=== PATIENT | female | born 1950 | race American Indian/Alaskan Native ===

== ENCOUNTER 2017-08-05 11:26 | Outpatient (CLI) | payer MEDICARE ==
[2017-08-05 12:50] LABS: Blood Urea Nitrogen 9 mg/dL (7-17)
--- NOTE | 2017-08-05 14:58 | Cat Scan Report ---
CT CHEST WITH AND WITHOUT CONTRAST: HISTORY: Calcified granuloma of lung. COMPARISON: none. TECHNIQUE: Helical CT in 1.25mm intervals before and after IV contrast. Sagittal and coronal reformatted images. FINDINGS: Thyroid gland: Normal. Tracheobronchial tree: Normal. Esophagus: Normal. Heart: Normal. Pericardium: Normal. Mediastinum: Calcified lymph nodes are noted in the subcarinal chain and bilateral hilar chains. No adenopathy is appreciated. The vascular structures are patent and unremarkable. Lung Kim: The lungs are clear. No underlying parenchymal lung disease is appreciated. A 5 mm calcified granuloma is identified in the right lower lobe. A 7 mm calcified granuloma is noted in the left lower lobe. No soft tissue density nodule or mass. No infiltrate. Pleural Spaces: Normal. Musculoskeletal: Mild thoracic spondylosis. No evidence for fracture or suspicious bony lesion. IMPRESSION: Calcified mediastinal lymph nodes and calcified granulomas in both lower lobes consistent with chronic granulomatous disease.
== END 2017-08-05 11:27 | disposition home or self-care (01) ==
LOC: CT 11:26
PROVIDERS: ATTEND Internal Medicine
DX: J84.10 Pulmonary fibrosis, unspecified (principal); M47.894 Other spondylosis, thoracic region
CPT/HCPCS: 36415; 71270; 82565; 84520; Q9967

== ENCOUNTER 2018-09-05 10:50 | Emergency (ER) | payer MEDICARE ==
--- NOTE | 2018-09-05 11:29 | Event Note ---
ED Screening Note Date of service: 09/05/18 ED Screening Note: AMS 68 YO HX BREAST CA BIPOLAR/ SCHIZO- WONT TAKE MEDS "BECAUSE THEY GONNA KILL M" NO DM NO DEMENTIA HERE W CAREGIVER WELL DRESSED AND GROOMED This initial assessment/diagnostic orders/clinical plan/treatment(s) is/are subject to change based on patients health status, clinical progression and re- assessment by fellow clinical providers in the ED. Further treatment and workup at subsequent clinical providers discretion. Patient/guardian urged not to elope from the ED as their condition may be serious if not clinically assessed and managed. Initial orders include: CT HEAD LABS INCLUDING TSH UA RO MED CAUSE- RESUME MEDS NO HARM TO SELF OR OTHERS [facility] DEPARTMENT CHAIR
[2018-09-05 11:39] LABS: Bilirubin,Urine NEG (Negative); Blood,Urine MOD (Negative); Color,Urine Yellow (Yellow); Mucus,Urine 2+ /HPF; Protein,Urine <15 mg/dL mg/dL (Negative)
[2018-09-05 11:50] LABS: Amphetamine Screen,Urine PRESUMPTIVE NEGATIVE; Benzodiazepines Screen,Urine PRESUMPTIVE NEGATIVE; Cannabinoid Screen,Urine PRESUMPTIVE NEGATIVE; Cocaine Screen,Urine PRESUMPTIVE NEGATIVE; Methadone Screen,Urine PRESUMPTIVE NEGATIVE; Opiate Screen,Urine PRESUMPTIVE NEGATIVE
[2018-09-05 11:53] LABS: Basophils # (Auto) 0.1 K/mm3 (0.0-0.1); Basophils % (Auto) 1.2 % (0.0-1.8); Eosinophils # (Auto) 0.1 K/mm3 (0.0-0.4); Eosinophils % (Auto) 1.6 % (0.0-4.3); Hematocrit 38.6 % (30.3-42.9); Hemoglobin 12.6 gm/dl (10.1-14.3); Lymphocytes # (Auto) 2.1 K/mm3 (1.2-5.4); Lymphocytes % (Auto) 45.3 % (13.4-35.0); Mean Corpuscular HGB Conc 33 % (30-34); Mean Corpuscular Volume 85 fl (79-97); Monocytes # (Auto) 0.3 K/mm3 (0.0-0.8); Monocytes % (Auto) 6.1 % (0.0-7.3); Platelet Count 230 K/mm3 (140-440); Red Blood Count 4.54 M/mm3 (3.65-5.03); Red Cell Distribution Width 17.2 % (13.2-15.2)
--- NOTE | 2018-09-05 12:02 | Emergency Department Report ---
HPI - General Chief Complaint: Psych Time Seen by Provider: 09/05/18 11:24 - HPI HPI: 68-year-old -Tongan female presents to the emergency department with her sole polisher with complaint of worsening of her paranoid schizophrenia secondary to medication noncompliance. The patient is one of 3 individuals at this personal halfway. The sole polisher says that she has been spitting out her meds on the floor or hiding them and these medications include Seroquel, trazodone, valproic acid, Haldol. The patient says "These are doo doo meds and she is trying to kill me." She was heard walking down the ER hallways yelling "don't kill me, don't kill me." She is AAO x [address] but not time. Denies any suicidal or homicidal ideations. ED Past Medical Hx - Past Medical History Previous Medical History?: Yes Hx GERD: Yes Hx of Cancer: Yes (breast cancer) Hx Psychiatric Treatment: Yes (paranoid schziophernia) - Surgical History Past Surgical History?: Yes Hx Breast Surgery: Yes (left breast mastectomy >10years ago) Additional Surgical History: hernia repair - Social History Smoking Status: Never Smoker Substance Use Type: None - Medications Home Medications: Home Medications Medication Instructions Recorded Confirmed Last Taken Type Cetirizine HCl [ZyrTEC 10mg cap] 10 mg PO DAILY 09/05/18 09/05/18 Unknown History Haloperidol Lactate 2 mg PO BID 09/05/18 09/05/18 Unknown History Pantoprazole [Protonix] 40 mg PO QDAY 09/05/18 09/05/18 Unknown History Quetiapine Fumarate [SEROquel] 50 mg PO QHS 09/05/18 09/05/18 Unknown History Trazodone HCl 150 mg PO QHS 09/05/18 09/05/18 Unknown History Valproic Acid [DepaKENE] 250 mg PO BID 09/05/18 09/05/18 Unknown History ED Review of Systems ROS: Stated complaint: MH EVALUATION Other details as noted in HPI Comment: Unobtainable due to pts medical conditions Psychiatric: other (paranoia). denies: homicidal thoughts, suicidal thoughts Physical Exam - Physical Exam Vital Signs: Vital Signs 09/05/18 11:24 Temperature 98.3 F Pulse Rate 78 Respiratory 16 Rate Blood Pressure 158/91 [Right] O2 Sat by Pulse 99 Oximetry Physical Exam: GENERAL: The patient is well-developed well-nourished. HENT: Normocephalic. Atraumatic. Patient has moist mucous membranes. EYES: Extraocular motions are intact. NECK: Supple. Trachea is midline. CHEST/LUNGS: Clear to auscultation. There is no respiratory distress noted. HEART/CARDIOVASCULAR: Regular. There is no tachycardia. There is no murmur. ABDOMEN: Abdomen is soft, nontender. Patient has normal bowel sounds. There is no abdominal distention. SKIN: Skin is warm and dry. NEURO: The patient is awake but confused. The patient has normal speech. Follows some commands. MUSCULOSKELETAL: There is no tenderness or deformity. There is no limitation range of motion. There is no evidence of acute injury. PSYCH: The patient exhibits paranoia and delusions. She is sometimes redirectable. ED Course Vital Signs 09/05/18 11:24 Temperature 98.3 F Pulse Rate 78 Respiratory 16 Rate Blood Pressure 158/91 [Right] O2 Sat by Pulse 99 Oximetry ED Medical Decision Making - Lab Data Result diagrams: 09/05/18 11:36 09/05/18 11:36 - Medical Decision Making The patient presented from her personal halfway with some worsening of her schizophrenia. I do not know if this is because the patient has not taken her medications or her psychosis has caused her to stop taking her medications but they were found on her floor. She exhibits paranoia and delusions. She is disorganized and keeps repeating that people are trying to kill her. For these reasons the patient does appear to require involuntary inpatient psychiatric admission. Her labs have been unremarkable. Vital signs are stable. She is medically cleared for psychiatric placement and the plan is to get her to the [facility] psych floor. - Differential Diagnosis schizophrenia, schizoaffective, bipolar disorder, substance abuse Critical Care Time: No Critical care attestation.: If time is entered above; I have spent that time in minutes in the direct care of this critically ill patient, excluding procedure time. ED Disposition Clinical Impression: Acute psychosis Disposition: DC/TX-65 PSY HOSP/PSY UNIT Is pt being admited?: No Condition: Stable Time of Disposition: 18:34
[2018-09-05 12:18] LABS: Alanine Aminotransferase 15 units/L (7-56); Albumin 4.2 g/dL (3.9-5); BUN/Creatinine Ratio 16; Blood Urea Nitrogen 13 mg/dL (7-17); Calcium 9.3 mg/dL (8.4-10.2); Hemolysis Index 6
--- NOTE | 2018-09-05 13:45 | Cat Scan Report ---
CT HEAD WITHOUT CONTRAST: HISTORY: Altered mental status. TECHNIQUE: Sequential CT images without contrast. FINDINGS: Images obtained show bilateral prominence of the sulci and ventricles. There are no abnormal intra- or extra-axial blood or fluid collections. There are no focal masses or evidence of mass effect. The tellez white matter differentiation appears within normal limits. Regions of periventricular decreased attenuation are consistent with microangiopathic ischemic disease. The posterior fossa structures including the fourth ventricle, cerebellum, and brainstem appear normal. IMPRESSION: Evidence of atrophy and microangiopathic ischemic disease. No acute intracranial process noted.
[2018-09-05 19:51] VITALS: BP 130/80
[2018-09-05] MEDS ORDERED: NON-FORMULARY (Trazodone Hcl [Trazodone Hcl] 150 MG) PO SCH (22:00)
[2018-09-05] MEDS ORDERED: DESYREL PO SCH (22:00)
[2018-09-05] MEDS ORDERED: HALOPERIDOL LACTATE PO SCH (22:00)
[2018-09-05] MEDS ORDERED: HALDOL PO SCH (22:00)
[2018-09-05] MEDS ORDERED: NON-FORMULARY (Quetiapine Fumarate [Seroquel] 50 MG) PO SCH (22:00)
[2018-09-06] MEDS ORDERED: PROTONIX PO SCH (10:00)
== END 2018-09-05 20:05 ==
LOC: ED 10:50
DX: F23 Brief psychotic disorder (principal); F20.0 Paranoid schizophrenia; K21.9 Gastro-esophageal reflux disease without esophagitis; Z85.3 Personal history of malignant neoplasm of breast
CPT/HCPCS: 36415; 70450; 80053; 80164; 80307; 81001; 84443; 85025

== ENCOUNTER 2018-09-05 18:58 | Inpatient (IN) | payer MEDICARE ==
[~2018-09-05 18:58] MED LIST: ATIVAN IM ONE
[2018-09-05] MEDS ORDERED: HALDOL IM PRN (19:50)
[2018-09-05] MEDS ORDERED: HALDOL PO PRN (19:52)
[2018-09-05] MEDS ORDERED: ATIVAN IM PRN (19:53)
[2018-09-05] MEDS: DESYREL PO SCH (22:07)
[2018-09-05] MEDS: HALDOL PO SCH (22:08)
[2018-09-06 07:52] LABS: Hematocrit TNR % (30.3-42.9); Hemoglobin TNR gm/dl (10.1-14.3); Mean Corpuscular HGB Conc TNR % (30-34); Mean Corpuscular Volume TNR fl (79-97); Red Blood Count TNR M/mm3 (3.65-5.03)
[2018-09-06 07:53] LABS: Mean Platelet Volume TNR fl (6-12); Platelet Count TNR K/mm3 (140-440); Red Cell Distribution Width TNR % (13.2-15.2)
[2018-09-06 07:54] LABS: Lymphocytes % (Auto) TNR % (13.4-35.0); Monocytes % (Auto) TNR % (0.0-7.3)
[2018-09-06 07:55] LABS: Basophils % (Auto) TNR % (0.0-1.8); Eosinophils % (Auto) TNR % (0.0-4.3); Lymphocytes # (Auto) TNR K/mm3 (1.2-5.4)
[2018-09-06 07:56] LABS: Basophils # (Auto) TNR K/mm3 (0.0-0.1); Eosinophils # (Auto) TNR K/mm3 (0.0-0.4); Monocytes # (Auto) TNR K/mm3 (0.0-0.8)
[2018-09-06 08:01] LABS: Alanine Aminotransferase 13 units/L (7-56); Albumin 3.5 g/dL (3.9-5); BUN/Creatinine Ratio 21; Blood Urea Nitrogen 15 mg/dL (7-17); Calcium 8.9 mg/dL (8.4-10.2); Hemolysis Index 21; LDL Cholesterol,Direct 63 mg/dL (50-130)
[2018-09-06 09:17] LABS: Chol/HDL Ratio 2.27 %; HDL Cholesterol 55 mg/dL (40-59)
[2018-09-06] MEDS: PROTONIX PO SCH (09:53)
[2018-09-06] MEDS: CLARITIN PO SCH (09:53)
[2018-09-06] MEDS: HALDOL PO SCH ×2 (09:54→21:30)
--- NOTE | 2018-09-06 19:39 | History and Physical Report ---
GP History & Physical - History of Present Illness Date of admission: 09/05/18 Date of Examination: 09/06/18 Reason for Admission: Danger to self, Impaired reality testing, Psychopathology interference, Unable to care for self Chief Complaint: I am the Holy Ghost lady History of Present Illness: The patient is a 68-year-old disabled -[place] female with history of Paranoid Schizophrenia brought to the emergency department by her senior patient account representative with complaint of worsening of her paranoid schizophrenia secondary to medication noncompliance. Per medical records, the patient is one of 3 individuals at this personal alf. The senior patient account representative says that she has been spitting out her meds on the floor or hiding them and these medications include Seroquel, trazodone, valproic acid, Haldol. In my interview with the patient, she states that she is the Holy Ghost lady, claims to be to God and God talks to tell her - tells her she is going to be alright. Nursing staff reports that she is delusional and hyper-bahai. Patient denies paranoia, suicidal or homicidal thoughts. She claims to be taking her medications as prescribed and denies side effects. She describes healthy appetite and normal sleep pattern. No history of substance abuse. Legal Status: Voluntary Patient Problems: Current Active Problems Paranoid schizophrenia (Acute) Reaction to Hospitalization: Accepting Substance History - Substance History Drug Use: none Hx Tobacco Use: No Alcohol Use: No Past psychiatric history - Past Medical History Past Medical History: cancer, GERD Past Surgical History: mastectomy - past Psychiatric treatment and history Psych: Schizophrenia - Social History Social history: single (She lives in a [facility], completed high school, disabled, no legal problems and no access to gun) Review of Systems All systems: negative Psychiatric: hallucinations Results - Results Labs/Vitals: Laboratory Last Values Sodium 145 mmol/L (137-145) 09/06/18 07:15 Potassium 3.6 mmol/L (3.6-5.0) 09/06/18 07:15 Chloride 106.5 mmol/L (98-107) 09/06/18 07:15 Carbon Dioxide 28 mmol/L (22-30) 09/06/18 07:15 14 mmol/L 09/06/18 07:15 BUN 15 mg/dL (7-17) 09/06/18 07:15 0.7 mg/dL (0.7-1.2) 09/06/18 07:15 Estimated GFR > 60 ml/min 09/06/18 07:15 21 % 09/06/18 07:15 Glucose 97 mg/dL (65-100) 09/06/18 07:15 POC Glucose 75 (70-105) 09/06/18 18:25 5.0 % (4-6) 09/06/18 08:10 Calcium 8.9 mg/dL (8.4-10.2) 09/06/18 07:15 0.20 mg/dL (0.1-1.2) 09/06/18 07:15 AST 19 units/L (5-40) 09/06/18 07:15 ALT 13 units/L (7-56) 09/06/18 07:15 49 units/L (35-129) 09/06/18 07:15 7.1 g/dL (6.3-8.2) 09/06/18 07:15 3.5 g/dL (3.9-5) L 09/06/18 07:15 1.0 % 09/06/18 07:15 Triglycerides 39 mg/dL (2-149) 09/06/18 07:15 Cholesterol 125 mg/dL (50-199) 09/06/18 07:15 63 mg/dL (50-130) 09/06/18 07:15 55 mg/dL (40-59) 09/06/18 07:15 2.27 % 09/06/18 07:15 Last Vital Signs Temp 97.6 F 09/06/18 10:00 Pulse 78 09/06/18 10:00 Resp 18 09/06/18 10:00 BP 123/71 09/06/18 10:00 Pulse Ox 99 09/06/18 10:00 Physical Examination - Constitutional Vitals: Vital Signs Temp Pulse Resp BP Pulse Ox 97.6 F 78 18 123/71 99 09/06/18 10:00 09/06/18 10:00 09/06/18 10:00 09/06/18 10:00 09/06/18 10:00 Temperature -Last 24 Hours Temperature 97.6 F Temperature 97.6 F Temperature 97.2 F Temperature 98.7 F Temperature 98.7 F General appearance: Present: no acute distress, well-nourished, disheveled - EENT Eyes: Present: PERRL, EOM intact ENT: hearing intact, clear oral mucosa - Neck Neck: Present: supple, normal ROM - Respiratory Respiratory effort: normal Mental Status Exam - Vital signs Last Vital Signs Temp 97.6 F 09/06/18 10:00 Pulse 78 09/06/18 10:00 Resp 18 09/06/18 10:00 BP 123/71 09/06/18 10:00 Pulse Ox 99 09/06/18 10:00 - Exam Orientation: time, place, person Affect: normal Mood: calm Thought content: delusions, anabaptist Thought Process: Goal Oriented Perceptions: hallucinations Speech: normal rate and pattern Concentration: focused Motor activity: normal Level of consciousness: alert Memory: Intact Sleep Symptoms: None Interaction: cooperative Assessment and Plan - Psychiatric problem (1) Paranoid schizophrenia Current Visit: Yes Status: Acute plan to address problem: Patient will be admitted for inpatient psychiatric evaluation, medication adjustment and close monitoring The patient's behavior, mood, sleep and appetite will be closely monitored. Patient will be enrolled in individual and group therapeutic sessions and encouraged to attend. Patient will be provided with a safe and structured environment. Patient's physical health needs will be addressed by the Hospitalist. Social Assessment will be completed and the Molasses Preparer will work with patient and family to ensure a suitable and safe disposition Medication adjustment will be made as clinically indicated The patient agreed on the treatment plan, understood the risk, benefit, alternative treatment, potential consequence of no treatment, and gave informed consent. Physician Certification - Certification Statement Physician Certification Statement: This is an acknowledgement statement that MARLENA WADSWORTH is a 68 year old F who requires inpatient psychiatric admission for treatment which could reasonably be expected to improve the patient's condition for Paranoid Schizophrenia Estimated period of time patient will need to remain in the hospital: 7 days Plan for post-hospital care: Out-patient care
[2018-09-06] MEDS: DESYREL PO SCH (21:23)
[2018-09-07] MEDS: CLARITIN PO SCH (09:37)
[2018-09-07] MEDS: PROTONIX PO SCH (09:37)
[2018-09-07 10:57] LABS: Bilirubin,Urine NEG (Negative); Blood,Urine MOD (Negative); Color,Urine Yellow (Yellow); Mucus,Urine FEW /HPF; Protein,Urine <15 mg/dL mg/dL (Negative); Urobilinogen,Urine < 2.0 mg/dL (<2.0)
[2018-09-07] MEDS: RisperDAL PO SCH ×2 (11:26→22:29)
[2018-09-07] MEDS: HALDOL PO SCH (13:29)
[2018-09-07] MEDS: DESYREL PO SCH (22:30)
[2018-09-07] MEDS: DepaKENE Liq PO SCH (22:50)
--- NOTE | 2018-09-08 08:59 | Progress Note ---
Subjective Date of service: 09/07/18 Principal diagnosis: Paranoid Schizophrenia Subjective Comment: Patient is floridly psychotic, delusional, paranoid, hallucinating and disorganized. She calls herself the Holy Ghost lady, calls a female staff the Cocaine lady and accuses me of plotting to kill her. She denies SI/HI. Objective - Criteria for Continued Treatment Criteria for Continued Treatment: Improving Level of Functioning, Reducing Isolative Behaviors, Understanding Diagnosis and need for Medication, Improving Treatment / Medication Compliance, Confronting Denial of Illness, Stablizing Level of Functioning, Improving Emotional/Socia - Mental Status Mental Status: Alert - Objective Observation Participation Level: Minimal Assessment and Plan - Patient Problems (1) Paranoid schizophrenia Current Visit: Yes Status: Acute Plan to address problem: Patient will be admitted for inpatient psychiatric evaluation, medication adjustment and close monitoring The patient's behavior, mood, sleep and appetite will be closely monitored. Patient will be enrolled in individual and group therapeutic sessions and encouraged to attend. Patient will be provided with a safe and structured environment. Patient's physical health needs will be addressed by the Hospitalist. Social Assessment will be completed and the Medical Payment Poster will work with patient and family to ensure a suitable and safe disposition Haldol was discontinued as it is unavailable nationwide. Risperidone 1mg bid commenced. The patient agreed on the treatment plan, understood the risk, benefit, alternative treatment, potential consequence of no treatment, and gave informed consent.
--- NOTE | 2018-09-08 09:03 | Progress Note ---
Subjective Date of service: 09/08/18 Principal diagnosis: Paranoid Schizophrenia Subjective Comment: Patient continues to be psychotic - delusional, paranoid, hallucinating and disorganized. She believes that others are plotting to kill her. She is compliant with meds and denies side effects. She denies SI/HI. Objective - Criteria for Continued Treatment Criteria for Continued Treatment: Improving Level of Functioning, Reducing Isolative Behaviors, Understanding Diagnosis and need for Medication, Improving Treatment / Medication Compliance, Confronting Denial of Illness, Stablizing Level of Functioning, Improving Emotional/Socia - Mental Status Mental Status: Alert - Objective Observation Participation Level: Minimal Assessment and Plan - Patient Problems (1) Paranoid schizophrenia Current Visit: Yes Status: Acute Plan to address problem: Patient will be admitted for inpatient psychiatric evaluation, medication adjustment and close monitoring The patient's behavior, mood, sleep and appetite will be closely monitored. Patient will be enrolled in individual and group therapeutic sessions and encouraged to attend. Patient will be provided with a safe and structured environment. Patient's physical health needs will be addressed by the Hospitalist. Social Assessment will be completed and the Shingle Packer will work with patient and family to ensure a suitable and safe disposition Haldol was discontinued as it is unavailable nationwide. Risperidone 1mg bid commenced yesterday The patient agreed on the treatment plan, understood the risk, benefit, alternative treatment, potential consequence of no treatment, and gave informed consent.
[2018-09-08] MEDS: PROTONIX PO SCH (09:58)
[2018-09-08] MEDS: RisperDAL PO SCH ×2 (09:58→21:21)
[2018-09-08] MEDS: DepaKENE Liq PO SCH ×2 (09:59→21:21)
[2018-09-08] MEDS: CLARITIN PO SCH (10:01)
[2018-09-08] MEDS: DESYREL PO SCH (21:21)
[2018-09-09] MEDS: DepaKENE Liq PO SCH ×2 (10:47→21:01)
[2018-09-09] MEDS: RisperDAL PO SCH ×2 (10:48→21:02)
[2018-09-09] MEDS: PROTONIX PO SCH (10:48)
[2018-09-09] MEDS: CLARITIN PO SCH (10:51)
--- NOTE | 2018-09-09 11:10 | Progress Note ---
Subjective Date of service: 09/09/18 Principal diagnosis: Paranoid Schizophrenia Subjective Comment: Patient continues to be psychotic - delusional, paranoid, hallucinating and disorganized. She believes that others are plotting to kill her. She is compliant with meds and denies side effects. She denies SI/HI. Objective - Criteria for Continued Treatment Criteria for Continued Treatment: Improving Level of Functioning, Reducing Isolative Behaviors, Understanding Diagnosis and need for Medication, Improving Treatment / Medication Compliance, Confronting Denial of Illness, Stablizing Level of Functioning, Improving Emotional/Socia - Mental Status Mental Status: Alert - Objective Observation Participation Level: Minimal Reason(s) For Not Participating: Behaviors Assessment and Plan - Patient Problems (1) Paranoid schizophrenia Current Visit: Yes Status: Acute Plan to address problem: Patient will be admitted for inpatient psychiatric evaluation, medication adjustment and close monitoring The patient's behavior, mood, sleep and appetite will be closely monitored. Patient will be enrolled in individual and group therapeutic sessions and encouraged to attend. Patient will be provided with a safe and structured environment. Patient's physical health needs will be addressed by the Hospitalist. Social Assessment will be completed and the Retail Bakery Manager will work with patie nt and family to ensure a suitable and safe disposition Haldol was discontinued as it is unavailable nationwide. Continue Risperidone 1mg bid The patient agreed on the treatment plan, understood the risk, benefit, alternative treatment, potential consequence of no treatment, and gave informed consent.
[2018-09-09] MEDS ORDERED: VISTARIL ONE (15:28)
[2018-09-09] MEDS ORDERED: VISTARIL PO PRN (17:14)
[2018-09-09] MEDS: DESYREL PO SCH (21:02)
--- NOTE | 2018-09-10 07:56 | Progress Note ---
Subjective Date of service: 09/10/18 Principal diagnosis: Paranoid Schizophrenia Subjective Comment: Patient continues to be psychotic. She is hyper-muslim, delusional, paranoid, hallucinating and disorganized. She is compliant with meds and denies side effects. No SI/HI gestures. Objective - Criteria for Continued Treatment Criteria for Continued Treatment: Improving Level of Functioning, Reducing Isolative Behaviors, Understanding Diagnosis and need for Medication, Improving Treatment / Medication Compliance, Stablizing Level of Functioning, Improving Emotional/Socia - Mental Status Mental Status: Alert - Objective Observation Participation Level: Minimal Reason(s) For Not Participating: Behaviors Assessment and Plan - Patient Problems (1) Paranoid schizophrenia Current Visit: Yes Status: Acute Plan to address problem: Patient will be admitted for inpatient psychiatric evaluation, medication adjustment and close monitoring The patient's behavior, mood, sleep and appetite will be closely monitored. Patient will be enrolled in individual and group therapeutic sessions and encouraged to attend. Patient will be provided with a safe and structured environment. Patient's physical health needs will be addressed by the Hospitalist. Social Assessment will be completed and the Library Clerk Talking Books will work with patient and family to ensure a suitable and safe disposition Haldol was discontinued as it is unavailable nationwide. Increase Risperidone to 2mg bid The patient agreed on the treatment plan, understood the risk, benefit, alternative treatment, potential consequence of no treatment, and gave informed consent.
[2018-09-10] MEDS: CLARITIN PO SCH (09:43)
[2018-09-10] MEDS: PROTONIX PO SCH (09:43)
[2018-09-10] MEDS: DepaKENE Liq PO SCH ×2 (09:43→21:07)
[2018-09-10] MEDS: RisperDAL PO SCH ×2 (09:43→21:07)
[2018-09-10] MEDS: DESYREL PO SCH (21:07)
[2018-09-11] MEDS: RisperDAL PO SCH ×2 (09:21→21:08)
[2018-09-11] MEDS: PROTONIX PO SCH (09:21)
[2018-09-11] MEDS: CLARITIN PO SCH (09:22)
[2018-09-11] MEDS: DepaKENE Liq PO SCH ×2 (09:22→21:08)
[2018-09-11] MEDS: DESYREL PO SCH (21:07)
--- NOTE | 2018-09-12 06:53 | Progress Note ---
Subjective Date of service: 09/11/18 Principal diagnosis: Paranoid Schizophrenia Subjective Comment: No improvement, she writes moravian phrases repeatedly on several papers. She continues to be psychotic. She is hyper-moravian, delusional, paranoid, hallucinating and disorganized. She is compliant with meds and denies side effects. No SI/HI gestures. Objective - Criteria for Continued Treatment Criteria for Continued Treatment: Improving Level of Functioning, Reducing Isolative Behaviors, Understanding Diagnosis and need for Medication, Improving Treatment / Medication Compliance, Stablizing Level of Functioning, Improving Emotional/Socia - Mental Status Mental Status: Alert - Objective Observation Participation Level: Minimal Reason(s) For Not Participating: Behaviors Assessment and Plan - Patient Problems (1) Paranoid schizophrenia Current Visit: Yes Status: Acute Plan to address problem: Patient will be admitted for inpatient psychiatric evaluation, medication adjustment and close monitoring The patient's behavior, mood, sleep and appetite will be closely monitored. Patient will be enrolled in individual and group therapeutic sessions and encouraged to attend. Patient will be provided with a safe and structured environment. Patient's physical health needs will be addressed by the Hospitalist. Social Assessment will be completed and the It Support Manager will work with patient and family to ensure a suitable and safe disposition Haldol was discontinued as it is unavailable nationwide. Continue Risperidone 2mg bid The patient agreed on the treatment plan, understood the risk, benefit, alternative treatment, potential consequence of no treatment, and gave informed consent.
[2018-09-12] MEDS: DepaKENE Liq PO SCH (09:48)
[2018-09-12] MEDS: RisperDAL PO SCH ×2 (09:48→21:02)
[2018-09-12] MEDS: PROTONIX PO SCH (09:49)
[2018-09-12] MEDS: CLARITIN PO SCH (09:49)
--- NOTE | 2018-09-12 10:41 | Progress Note ---
Subjective Date of service: 09/12/18 Principal diagnosis: Paranoid Schizophrenia Subjective Comment: Patient appears to be catatonic, she is non-verbal, starring, not acknowledging others around her, pacing and scribbling same words or phrases repetitively with religion content. She continues to be psychotic. She is hyper-religion, delusional, paranoid, hallucinating and disorganized. She is compliant with meds. No reported or observed side effects. No SI/HI gestures. Objective - Criteria for Continued Treatment Criteria for Continued Treatment: Improving Level of Functioning, Reducing Isolative Behaviors, Stablizing Level of Functioning, Improving Emotional/Socia - Mental Status Mental Status: Alert - Objective Observation Participation Level: Minimal Reason(s) For Not Participating: Behaviors Assessment and Plan - Patient Problems (1) Paranoid schizophrenia Current Visit: Yes Status: Acute Plan to address problem: Patient will be admitted for inpatient psychiatric evaluation, medication adjustment and close monitoring The patient's behavior, mood, sleep and appetite will be closely monitored. Patient will be enrolled in individual and group therapeutic sessions and e ncouraged to attend. Patient will be provided with a safe and structured environment. Patient's physical health needs will be addressed by the Hospitalist. Social Assessment will be completed and the Food Operations Manager will work with patient and family to ensure a suitable and safe disposition Haldol was discontinued as it is unavailable nationwide. Continue Risperidone 2mg bid Will do a benzodiazapine challenge. The patient agreed on the treatment plan, understood the risk, benefit, alternative treatment, potential consequence of no treatment, and gave informed consent.
[2018-09-12] MEDS: DESYREL PO SCH (21:02)
[2018-09-13] MEDS: CLARITIN PO SCH (10:08)
[2018-09-13] MEDS: PROTONIX PO SCH (10:08)
[2018-09-13] MEDS: RisperDAL PO SCH ×2 (10:08→21:52)
[2018-09-13] MEDS: DESYREL PO SCH (21:52)
[2018-09-14] MEDS: PROTONIX PO SCH (09:35)
[2018-09-14] MEDS: RisperDAL PO SCH ×2 (09:35→21:00)
[2018-09-14] MEDS: CLARITIN PO SCH (09:35)
[2018-09-14] MEDS: DESYREL PO SCH (21:01)
[2018-09-15] MEDS: RisperDAL PO SCH ×2 (10:14→21:17)
[2018-09-15] MEDS: PROTONIX PO SCH ×2 (10:15→12:34)
[2018-09-15] MEDS: CLARITIN PO SCH (10:15)
--- NOTE | 2018-09-15 12:52 | Progress Note ---
Subjective Date of service: 09/13/18 Principal diagnosis: Paranoid Schizophrenia Subjective Comment: Patient is non-verbal, starring, pacing and scribbling same words or phrases repetitively with denominational content. She continues to be psychotic. She is hyper-denominational, delusional, paranoid, hallucinating and disorganized. She is compliant with meds. No reported or observed side effects. No SI/HI gestures. Objective - Criteria for Continued Treatment Criteria for Continued Treatment: Improving Level of Functioning, Reducing Isolative Behaviors, Understanding Diagnosis and need for Medication, Stablizing Level of Functioning, Improving Emotional/Socia - Mental Status Mental Status: Alert - Objective Observation Participation Level: Minimal Reason(s) For Not Participating: Behaviors Assessment and Plan - Patient Problems (1) Paranoid schizophrenia Current Visit: Yes Status: Acute Plan to address problem: Patient will be admitted for inpatient psychiatric evaluation, medication adj ustment and close monitoring The patient's behavior, mood, sleep and appetite will be closely monitored. Patient will be enrolled in individual and group therapeutic sessions and encouraged to attend. Patient will be provided with a safe and structured environment. Patient's physical health needs will be addressed by the Hospitalist. Social Assessment will be completed and the Supervisor Research Shop will work with patient and family to ensure a suitable and safe disposition Haldol was discontinued as it is unavailable nationwide. Continue Risperidone 2mg bid. The patient agreed on the treatment plan, understood the risk, benefit, alternative treatment, potential consequence of no treatment, and gave informed consent.
--- NOTE | 2018-09-15 12:53 | Progress Note ---
Subjective Date of service: 09/14/18 Principal diagnosis: Paranoid Schizophrenia Subjective Comment: Patient is non-verbal, starring, pacing and scribbling same words or phrases repetitively with mandaen content. She continues to be psychotic. She is hyper-mandaen, delusional, paranoid, hallucinating and disorganized. She is compliant with meds. No reported or observed side effects. No SI/HI gestures. Objective - Criteria for Continued Treatment Criteria for Continued Treatment: Improving Level of Functioning, Understanding Diagnosis and need for Medication, Stablizing Level of Functioning, Improving Emotional/Socia - Mental Status Mental Status: Alert - Objective Observation Participation Level: Minimal Assessment and Plan - Patient Problems (1) Paranoid schizophrenia Current Visit: Yes Status: Acute Plan to address problem: Patient will be admitted for inpatient psychiatric evaluation, medication adjustment and close monitoring The patient's behavior, mood, sleep and appetite will be closely monitored. Patient will be enrolled in individual and group therapeutic sessions and encouraged to attend. Patient will be provided with a safe and structured environment. Patient's physical health needs will be addressed by the Hospitalist. Social Assessment will be completed and the Director Of Agriculture will work with patient and family to ensure a suitable and safe disposition Haldol was discontinued as it is unavailable nationwide. Continue Risperidone 2mg bid. The patient agreed on the treatment plan, understood the risk, benefit, alternative treatment, potential consequence of no treatment, and gave informed consent.
--- NOTE | 2018-09-15 12:57 | Progress Note ---
Subjective Date of service: 09/15/18 Principal diagnosis: Paranoid Schizophrenia Subjective Comment: Patient is improving, acknowledges the presence of others, responds to staffs by nodding or shaking her head. She is non-verbal with me, starring, pacing and scribbling same words or phrases repetitively with adventism content. She was up all night, pacing in her room despite taking her medications. She continues to be psychotic. She is hyper-adventism, delusional, paranoid, hallucinating and disorganized. She is compliant with meds. No reported or observed side effects. No SI/HI gestures. Objective - Criteria for Continued Treatment Criteria for Continued Treatment: Improving Level of Functioning, Reducing Isolative Behaviors, Understanding Diagnosis and need for Medication, Stablizing Level of Functioning, Improving Emotional/Socia - Mental Status Mental Status: Alert - Objective Observation Participation Level: Minimal Assessment and Plan - Patient Problems (1) Paranoid schizophrenia Current Visit: Yes Status: Acute Plan to address problem: Patient will be admitted for inpatient psychiatric evaluation, medication adjustment and close monitoring The patient's behavior, mood, sleep and appetite will be closely monitored. Patient will be enrolled in individual and group therapeutic sessions and encouraged to attend. Patient will be provided with a safe and structured environment. Patient's physical health needs will be addressed by the Hospitalist. Social Assessment will be completed and the Shipping Hand will work with patient and family to ensure a suitable and safe disposition Haldol was discontinued as it was unavailable nationwide. Will increase Risperidone to 4mg bid. Discontinue Seroquel Check Valproic acid level in am tomorrow and adjust dose. Start Lorazepam 1 mg bid for 3 days The patient agreed on the treatment plan, understood the risk, benefit, alternative treatment, potential consequence of no treatment, and gave informed consent.
[2018-09-15] MEDS: ATIVAN PO SCH ×2 (14:42→21:16)
[2018-09-15] MEDS: DESYREL PO SCH (21:17)
--- NOTE | 2018-09-16 09:01 | Progress Note ---
Subjective Date of service: 09/16/18 Principal diagnosis: Paranoid Schizophrenia Subjective Comment: Patient continues to improve. She engaging in meaningful conversations with staffs. She calmer and not pacing non-stop. She continues to scribble same words and phrases repetitively with confucianism content. She slept better last night. She is pleasant with me this morning. States that her mood is good. She continues to be psychotic. She is hyper-confucianism, delusional, paranoid, hallucinating and disorganized. She states that Srinivasan speaks to her and tells her "it's gonna be alright". She is compliant with meds. No reported or observed side effects. She denies SI/HI Objective - Criteria for Continued Treatment Criteria for Continued Treatment: Improving Level of Functioning, Reducing Isolative Behaviors, Stablizing Level of Functioning, Improving Emotional/Socia - Mental Status Mental Status: Alert - Objective Observation Participation Level: Moderate Assessment and Plan - Patient Problems (1) Paranoid schizophrenia Current Visit: Yes Status: Acute Plan to address problem: Patient will be admitted for inpatient psychiatric evaluation, medication adjustment and close monitoring The patient's behavior, mood, sleep and appetite will be closely monitored. Patient will be enrolled in individual and group therapeutic sessions and encouraged to attend. Patient will be provided with a safe and structured environment. Patient's physical health needs will be addressed by the Hospitalist. Social Assessment will be completed and the Horse Groomer will work with patient and family to ensure a suitable and safe disposition Haldol was discontinued as it was unavailable nationwide. Will continue Risperidone 4mg bid. Discontinue Seroquel Await result of Valproic acid level and adjust dose. Continue Lorazepam 1 mg bid for 2 days The patient agreed on the treatment plan, understood the risk, benefit, alternative treatment, potential consequence of no treatment, and gave informed consent.
[2018-09-16] MEDS: RisperDAL PO SCH (09:24)
[2018-09-16] MEDS: CLARITIN PO SCH (09:25)
[2018-09-16] MEDS: ATIVAN PO SCH (09:25)
[2018-09-16] MEDS: PROTONIX PO SCH (09:25)
[2018-09-17] MEDS: RisperDAL PO SCH ×3 (01:03→21:11)
[2018-09-17] MEDS: ATIVAN PO SCH ×3 (01:03→21:09)
[2018-09-17] MEDS: DESYREL PO SCH ×2 (01:03→21:11)
--- NOTE | 2018-09-17 08:35 | Progress Note ---
Subjective Date of service: 09/17/18 Principal diagnosis: Paranoid Schizophrenia Subjective Comment: Patient is hyper-holiness, delusional, paranoid and continues to experience auditory hallucinations but she is more organized, communicative and interactive. She converses with staffs. She is calmer and not pacing non-stop. She continues to scribble same words and phrases repetitively with holiness content. She slept well last night. She is compliant with meds. No reported or observed side effects. She denies SI/HI. Serum Valproic acid level was 55.2 yesterday am Objective - Criteria for Continued Treatment Criteria for Continued Treatment: Improving Level of Functioning, Stablizing Level of Functioning, Improving Emotional/Socia - Mental Status Mental Status: Alert - Objective Observation Participation Level: Moderate Assessment and Plan - Patient Problems (1) Paranoid schizophrenia Current Visit: Yes Status: Acute Plan to address problem: Patient will be admitted for inpatient psychiatric evaluation, medication adjustment and close monitoring The patient's behavior, mood, sleep and appetite will be closely monitored. Patient will be enrolled in individual and group therapeutic sessions and enc ouraged to attend. Patient will be provided with a safe and structured environment. Patient's physical health needs will be addressed by the Hospitalist. Social Assessment will be completed and the Cookie Mixer Helper will work with patient and family to ensure a suitable and safe disposition Haldol was discontinued as it was unavailable nationwide. Will continue Risperidone 4mg bid. Continue Depakote at current dose. Will consider increasing it if no improvement within the next few days. Decrease and discontinue Lorazepam over the next 2 days. The patient agreed on the treatment plan, understood the risk, benefit, alternative treatment, potential consequence of no treatment, and gave informed consent.
[2018-09-17] MEDS: PROTONIX PO SCH (09:26)
[2018-09-17] MEDS: CLARITIN PO SCH (09:29)
--- NOTE | 2018-09-18 09:13 | Progress Note ---
Subjective Date of service: 09/18/18 Principal diagnosis: Paranoid Schizophrenia Subjective Comment: Patient is manic, euphoric and hyper-active today. She only slept for 2 hours last night. She continues to be hyper-yazidi, delusional and paranoid. She continues to experience auditory hallucinations. She is more organized, communicative and interactive with staffs but not with me. She is compliant with meds. No reported or observed side effects. She denies SI/HI. Objective - Criteria for Continued Treatment Criteria for Continued Treatment: Improving Level of Functioning, Reducing Isolative Behaviors, Stablizing Level of Functioning, Improving Emotional/Socia - Mental Status Mental Status: Alert - Objective Observation Participation Level: Moderate Assessment and Plan - Patient Problems (1) Paranoid schizophrenia Current Visit: Yes Status: Acute Plan to address problem: Patient will be admitted for inpatient psychiatric evaluation, medication adjustment and close monitoring The patient's behavior, mood, sleep and appetite will be closely monitored. Patient will be enrolled in individual and group therapeutic sessions and encouraged to attend. Patient will be provided with a safe and structured environment. Patient's physical health needs will be addressed by the Hospitalist. Social Assessment will be completed and the Fisherman Helper will work with patient and family to ensure a suitable and safe disposition Haldol was discontinued as it was unavailable nationwide. Will continue Risperidone 4mg bid. Serum Valproic acid level was 55.2. I will increase Depakote ER to 1500mg qhs fo r mood stabilization. Decrease and discontinue Lorazepam over the next 2 days. The patient agreed on the treatment plan, understood the risk, benefit, alternative treatment, potential consequence of no treatment, and gave informed consent.
[2018-09-18] MEDS: PROTONIX PO SCH (09:22)
[2018-09-18] MEDS: CLARITIN PO SCH (09:22)
[2018-09-18] MEDS: ATIVAN PO SCH ×2 (09:22→21:46)
[2018-09-18] MEDS: RisperDAL PO SCH ×2 (09:23→21:48)
[2018-09-18] MEDS: DESYREL PO SCH (21:47)
--- NOTE | 2018-09-19 09:09 | Progress Note ---
Subjective Date of service: 09/19/18 Principal diagnosis: Paranoid Schizophrenia Subjective Comment: Patient appears to be more manic, euphoric and hyper-active since Lorazepam was decreased. She continues to be hyper-congregation, delusional and paranoid. She continues to experience auditory hallucinations. She is selectively communicative and interactive with staffs. She is compliant with meds. No reported or observed side effects. She denies SI/HI. Objective - Criteria for Continued Treatment Criteria for Continued Treatment: Improving Level of Functioning, Reducing Isolative Behaviors, Stablizing Level of Functioning, Improving Emotional/Socia - Mental Status Mental Status: Alert - Objective Observation Participation Level: Moderate Assessment and Plan - Patient Problems (1) Paranoid schizophrenia Current Visit: Yes Status: Acute Plan to address problem: Patient will be admitted for inpatient psychiatric evaluation, medication adjustment and close monitoring The patient's behavior, mood, sleep and appetite will be closely monitored. Patient will be enrolled in individual and group therapeutic sessions and encouraged to attend. Patient will be provided with a safe and structured environment. Patient's physical health needs will be addressed by the Hospitalist. Social Assessment will be completed and the Cnc Mill And Lathe Operator will work with patient and family to ensure a suitable and safe disposition Haldol was discontinued as it was unavailable nationwide. Will continue Risperidone 4mg bid. Serum Valproic acid level was 55.2. and Depakote ER was increased to 1500mg qhs on 09/18 for mood stabilization. Will switch Lorazepam to prn and start Clonazepam bid for manic symptoms The patient agreed on the treatment plan, understood the risk, benefit, alternative treatment, potential consequence of no treatment, and gave informed consent.
[2018-09-19] MEDS ORDERED: ATIVAN PO PRN ×2 (09:11→10:00)
[2018-09-19] MEDS: CLARITIN PO SCH (09:59)
[2018-09-19] MEDS: PROTONIX PO SCH (09:59)
[2018-09-19] MEDS: RisperDAL PO SCH ×2 (09:59→21:53)
[2018-09-19] MEDS: DESYREL PO SCH (21:52)
[2018-09-19] MEDS: MELATONIN PO SCH (21:53)
[2018-09-20] MEDS: CLARITIN PO SCH (09:58)
[2018-09-20] MEDS: PROTONIX PO SCH (09:58)
[2018-09-20] MEDS: RisperDAL PO SCH (09:59)
--- NOTE | 2018-09-20 20:03 | Progress Note ---
Subjective Date of service: 09/20/18 Principal diagnosis: Paranoid Schizophrenia Subjective Comment: The patient is disorganized, hyper-samaritan, delusional and paranoid. She continues to experience auditory hallucinations. She isolates and internal preoccupied. She is compliant with meds. No reported or observed side effects. She denies SI/HI. Objective - Criteria for Continued Treatment Criteria for Continued Treatment: Reducing Isolative Behaviors, Stablizing Level of Functioning, Improving Emotional/Socia - Mental Status Mental Status: Alert - Objective Observation Participation Level: Minimal Assessment and Plan - Patient Problems (1) Paranoid schizophrenia Current Visit: Yes Status: Acute Plan to address problem: Patient will be admitted for inpatient psychiatric evaluation, medication adjustment and close monitoring The patient's behavior, mood, sleep and appetite will be closely monitored. Patient will be enrolled in individual and group therapeutic sessions and encouraged to attend. Patient will be provided with a safe and structured environment. Patient's physical health needs will be addressed by the Hospitalist. Social Assessment will be completed and the Motion Picture Commentator will work with patient and family to ensure a suitable and safe disposition Haldol was discontinued as it was unavailable nationwide. Will continue Risperidone 4mg bid. Serum Valproic acid level was 55.2. and Depakote ER was increased to 1500mg qhs on 09/18 for mood stabilization. Will continue Lorazepam prn and Clonazepam bid for manic symptoms The patient agreed on the treatment plan, understood the risk, benefit, alternative treatment, potential consequence of no treatment, and gave informed consent.
[2018-09-20] MEDS: MELATONIN PO SCH (23:47)
[2018-09-21] MEDS: DESYREL PO SCH ×2 (00:04→21:10)
[2018-09-21] MEDS: RisperDAL PO SCH ×3 (00:04→21:12)
--- NOTE | 2018-09-21 08:02 | Progress Note ---
Subjective Date of service: 09/21/18 Principal diagnosis: Paranoid Schizophrenia Subjective Comment: The looks better this better. She is pleasantly delusional. She denies SI/HI/paranoia. She continues to be hyper-anabaptism and continues to experience auditory hallucinations but she likes the voice as it's that of Srinivasan Ollie. She is compliant with meds. No reported or observed side effects. She denies SI/HI. Objective - Criteria for Continued Treatment Criteria for Continued Treatment: Improving Level of Functioning, Reducing Isolative Behaviors, Stablizing Level of Functioning, Improving Emotional/Socia - Mental Status Mental Status: Alert - Objective Observation Participation Level: Minimal Reason(s) For Not Participating: Behaviors Assessment and Plan - Patient Problems (1) Paranoid schizophrenia Current Visit: Yes Status: Acute Plan to address problem: Patient will be admitted for inpatient psychiatric evaluation, medication adjustment and close monitoring The patient's behavior, mood, sleep and appetite will be closely monitored. Patient will be enrolled in individual and group therapeutic sessions and encouraged to attend. Patient will be provided with a safe and structured environment. Patient's physical health needs will be addressed by the Hospitalist. Social Assessment will be completed and the Statistical Developer will work with patient and family to ensure a suitable and safe disposition Haldol was discontinued as it was unavailable nationwide. Will continue Risperidone 4mg bid. Serum Valproic acid level was 55.2. and Depakote ER was increased to 1500mg qhs on 09/18 for mood stabilization. Will continue Lorazepam prn and Clonazepam bid for manic symptoms The patient agreed on the treatment plan, understood the risk, benefit, alternative treatment, potential consequence of no treatment, and gave informed consent.
[2018-09-21] MEDS: PROTONIX PO SCH (09:17)
[2018-09-21] MEDS: CLARITIN PO SCH (09:20)
[2018-09-21] MEDS: MELATONIN PO SCH (21:11)
--- NOTE | 2018-09-22 09:25 | Progress Note ---
Subjective Date of service: 09/22/18 Principal diagnosis: Paranoid Schizophrenia Subjective Comment: Patient is calm and pleasant. She is pleasantly delusional. She denies SI/HI/paranoia. She continues to be hyper-adventism and continues to experience auditory hallucinations but she likes the voice as it's that of Srinivasan Ollie. She is compliant with meds. No reported or observed side effects. She denies SI/HI. Will plan to discharge patient tomorrow am if she continues to do well. Objective - Criteria for Continued Treatment Criteria for Continued Treatment: Improving Level of Functioning, Improving Emotional/Socia, Decreasing Frequency of Hospitalization - Mental Status Mental Status: Alert - Objective Observation Participation Level: Moderate Assessment and Plan - Patient Problems (1) Paranoid schizophrenia Current Visit: Yes Status: Acute Plan to address problem: Patient will be admitted for inpatient psychiatric evaluation, medication adjustment and close monitoring The patient's behavior, mood, sleep and appetite will be closely monitored. Patient will be enrolled in individual and group therapeutic sessions and encouraged to attend. Patient will be provided with a safe and structured environment. Patient's physical health needs will be addressed by the Hospitalist. Social Assessment will be completed and the Cashier Courtesy Booth will work with patient and family to ensure a suitable and safe disposition Haldol was discontinued as it was unavailable nationwide. Will continue Risperidone 4mg bid. Serum Valproic acid level was 55.2. and Depakote ER was increased to 1500mg qhs on 09/18 for mood stabilization. Will continue Lorazepam prn and Clonazepam bid for manic symptoms The patient agreed on the treatment plan, understood the risk, benefit, alternative treatment, potential consequence of no treatment, and gave informed consent.
[2018-09-22] MEDS: PROTONIX PO SCH (10:59)
[2018-09-22] MEDS: RisperDAL PO SCH ×2 (11:00→21:27)
[2018-09-22] MEDS: CLARITIN PO SCH (11:04)
[2018-09-22] MEDS: MELATONIN PO SCH (21:26)
[2018-09-22] MEDS: DESYREL PO SCH (21:26)
--- NOTE | 2018-09-23 07:55 | Discharge Summary ---
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 The patients mood, anxiety, thoughts, stress management skill, cognition, impulse/anger control, motivation, understanding of disease, compliance to treatment and appreciation on family/social support are improved and stabilized. At the time of discharge, the patient had no suicidal ideas, no homicidal ideas, no aggressive thoughts, no endangering behavior and no debilitating adverse effects. The patient agreed on the treatment plan, understood the risk, benefit, alternative treatment, potential consequence of no treatment, and gave informed consent. The patient was advised to be compliant with medications, not to use drugs and not to drink alcohol. The patient understands that if suicidal ideas, homicidal ideas, or any endangering thoughts arise, the patient should immediately seek for emergent assistance including but not limited to crisis hot line and emergency room. Follow up with out-patient Psychiatrist and PCP within 14 - 21 days of discharge. Disposition: -01 TO HOME OR SELFCARE Time spent for discharge: 38 mins Allergies/Adverse Reactions: Allergies Penicillins Allergy (Verified 09/05/18 11:27) Unknown Vital Signs: Last Vital Signs Temp 97.6 F 09/22/18 19:54 Pulse 94 H 09/22/18 19:54 Resp 18 09/22/18 19:54 BP 113/67 09/22/18 19:54 Pulse Ox 98 09/22/18 19:54 Last Lab: Laboratory Last Values WBC TNR 09/06/18 07:15 RBC TNR 09/06/18 07:15 Hgb TNR 09/06/18 07:15 Hct TNR 09/06/18 07:15 MCV TNR 09/06/18 07:15 MCH TNR 09/06/18 07:15 MCHC TNR 09/06/18 07:15 RDW TNR 09/06/18 07:15 Plt Count TNR 09/06/18 07:15 Lymph % (Auto) TNR 09/06/18 07:15 [place] % (Auto) TNR 09/06/18 07:15 Eos % (Auto) TNR 09/06/18 07:15 Baso % (Auto) TNR 09/06/18 07:15 Lymph # TNR 09/06/18 07:15 [place] # TNR 09/06/18 07:15 Eos # TNR 09/06/18 07:15 Baso # TNR 09/06/18 07:15 Add Manual Diff TNR 09/06/18 07:15 Seg Neutrophils % TNR 09/06/18 07:15 Seg Neutrophils # TNR 09/06/18 07:15 Sodium 145 mmol/L (137-145) 09/06/18 07:15 Potassium 3.6 mmol/L (3.6-5.0) 09/06/18 07:15 Chloride 106.5 mmol/L (98-107) 09/06/18 07:15 Carbon Dioxide 28 mmol/L (22-30) 09/06/18 07:15 14 mmol/L 09/06/18 07:15 BUN 15 mg/dL (7-17) 09/06/18 07:15 0.7 mg/dL (0.7-1.2) 09/06/18 07:15 Estimated GFR > 60 ml/min 09/06/18 07:15 21 % 09/06/18 07:15 Glucose 97 mg/dL (65-100) 09/06/18 07:15 POC Glucose 75 (70-105) 09/06/18 18:25 5.0 % (4-6) 09/06/18 08:10 Calcium 8.9 mg/dL (8.4-10.2) 09/06/18 07:15 0.20 mg/dL (0.1-1.2) 09/06/18 07:15 AST 19 units/L (5-40) 09/06/18 07:15 ALT 13 units/L (7-56) 09/06/18 07:15 49 units/L (35-129) 09/06/18 07:15 7.1 g/dL (6.3-8.2) 09/06/18 07:15 3.5 g/dL (3.9-5) L 09/06/18 07:15 1.0 % 09/06/18 07:15 Triglycerides 39 mg/dL (2-149) 09/06/18 07:15 Cholesterol 125 mg/dL (50-199) 09/06/18 07:15 63 mg/dL (50-130) 09/06/18 07:15 55 mg/dL (40-59) 09/06/18 07:15 2.27 % 09/06/18 07:15 Yellow (Yellow) 09/07/18 Unknown Slightly-cloudy (Clear) 09/07/18 Unknown 6.0 (5.0-7.0) 09/07/18 Unknown Ur Specific [place] 1.017 (1.003-1.030) 09/07/18 Unknown <15 mg/dl mg/dL (Negative) 09/07/18 Unknown Neg mg/dL (Negative) 09/07/18 Unknown Neg mg/dL (Negative) 09/07/18 Unknown Mod (Negative) 09/07/18 Unknown Neg (Negative) 09/07/18 Unknown Neg (Negative) 09/07/18 Unknown < 2.0 mg/dL (<2.0) 09/07/18 Unknown Ur Leukocyte Esterase Tr (Negative) 09/07/18 Unknown 2.0 /HPF (0.0-6.0) 09/07/18 Unknown 5.0 /HPF (0.0-6.0) 09/07/18 Unknown U Epithel Cells (Auto) 9.0 /HPF (0-13.0) 09/07/18 Unknown Few /HPF 09/07/18 Unknown Valproic Acid 55.2 ug/mL (50-100) 09/16/18 08:44 - Discharge Diagnoses (1) Paranoid schizophrenia Status: Acute Core Measure Documentation - Palliative Care Palliative Care/ Comfort Measures: Not Applicable - Core Measures Any of the following diagnoses?: none - VTE Discharge Requirements Deep Vein Thrombosis/Pulmonary Embolism Present on Admission: No Has pt received <5 days of overlap therapy or INR<2.0: No Anticoagulant overlap therapy prescribed at discharge: No Contraindication No Overlap Therapy order at DC: Not Indicated Exam - Constitutional Vitals: Temp Pulse Resp BP Pulse Ox 97.6 F 94 H 18 113/67 98 09/22/18 19:54 09/22/18 19:54 09/22/18 19:54 09/22/18 19:54 09/22/18 19:54 General appearance: Present: no acute distress, well-nourished - EENT Eyes: Present: PERRL, EOM intact ENT: hearing intact, clear oral mucosa - Neck Neck: Present: supple, normal ROM - Respiratory Respiratory effort: normal Plan Activity: no restrictions Weight Bearing Status: Full Weight Bearing Diet: regular Follow up with: PRIMARY CARE, [Primary Care Provider] - 7 Days Prescriptions: Divalproex ER [Depakote ER] 1,500 mg PO QHS 30 Days tablet Melatonin [Melatonin 5MG TAB] 10 mg PO QHS 30 Days tablet Trazodone HCl 150 mg PO QHS 30 Days tablet clonazePAM [KlonoPIN] 1 mg PO BID 30 Days tablet risperiDONE [RisperDAL] 4 mg PO BID 30 Days tablet
[2018-09-23 09:44] VITALS: BP 116/62
[2018-09-23] MEDS: RisperDAL PO SCH (09:44)
[2018-09-23] MEDS: PROTONIX PO SCH (09:45)
[2018-09-23] MEDS: CLARITIN PO SCH (09:45)
== END 2018-09-23 17:20 | disposition home or self-care (01) | DRG 885 ==
LOC: UNDOADMIN 18:58 → 3A 18:58 → 5A 19:04
PROVIDERS: ADMIT Psychiatry & Neurology Psychiatry; ATTEND Psychiatry & Neurology Psychiatry
DX: F20.0 Paranoid schizophrenia (principal); K21.9 Gastro-esophageal reflux disease without esophagitis; Z91.14 Patient's other noncompliance with medication regimen; Z88.0 Allergy status to penicillin; Z90.10 Acquired absence of unspecified breast and nipple; Z85.3 Personal history of malignant neoplasm of breast
CPT/HCPCS: 36415; 70450; 80053; 80061; 80164; 80307; 81001; 82962; 83036; 84443; 85025; G0378; J1630; Q0177